=== PATIENT | female | born 1970 | race Native Hawaiian/Other Pacific Islander ===

== ENCOUNTER 2022-03-19 12:51 | Outpatient (CLI) | payer BC | END 2022-03-19 19:34 | disposition home or self-care (01) | LOC: MAMMO 12:51 | PROVIDERS: ATTEND Obstetrics & Gynecology | DX: Z12.31 Encounter for screening mammogram for malignant neoplasm of breast (principal) ==

== ENCOUNTER 2023-06-14 11:05 | Outpatient (CLI) | payer BC | END 2023-06-14 21:55 | disposition home or self-care (01) | LOC: MAMMO 11:05 | PROVIDERS: ATTEND Obstetrics & Gynecology | DX: Z13.820 Encounter for screening for osteoporosis (principal); Z12.31 Encounter for screening mammogram for malignant neoplasm of breast ==